=== PATIENT | female | born 1985 | race Caucasian/White ===

== ENCOUNTER 2017-12-07 20:58 | Emergency (ER) | payer SELFPAY, OTHER | END 2017-12-07 23:42 | disposition left against medical advice (07) | LOC: E/R 20:58 | DX: Z53.21 Procedure and treatment not carried out due to patient leaving prior to being seen by health care provider (principal) ==

== ENCOUNTER 2018-07-07 18:46 | Emergency (ER) | payer OTHER ==
[2018-07-07] MEDS: ACETAMINOPHEN 325 MG TAB PO (22:25)
[2018-07-08 00:13] LABS: URINE PH (Dip) POC 5.5 (5.0-8.5)
[2018-07-08 00:13] LABS: URINE BLOOD (Dip) POC Negative (NEGATIVE); URINE GLUCOSE (Dip) POC Negative (NEGATIVE); URINE KETONES (Dip) POC Negative (NEGATIVE); URINE LEUKOCYTE EST (Dip) POC Trace (NEGATIVE); URINE NITRITE (Dip) POC Negative (NEGATIVE); URINE TOTAL PROTEIN POC Trace (NEGATIVE)
== END 2018-07-08 00:20 | disposition home or self-care (01) ==
LOC: FTE 07-08 00:20
DX: O23.11 Infections of bladder in pregnancy, first trimester (principal); M54.5 Low back pain; Z3A.13 13 weeks gestation of pregnancy
CPT/HCPCS: 76801; 81003; 81025; 99284-25